=== PATIENT | female | born 1955 | race African-American/Black ===

== ENCOUNTER → 2016-12-19 | Outpatient (CLI) | payer BC ==
[2015-04-07 08:48] VITALS: BP 138/73
[~2016-12-19] MED LIST: CHOL200044 PO; LOSA100T6 PO; LOVA20TA2 PO; METO-269 PO; NAPR1TAB21 PO; OMEP40CA5 PO
--- NOTE | 2016-12-19 10:05 | RAD ---
Thyroid ultrasound, 12/19/2016: History: Thyroid nodules The right lobe of the gland measures 4.5 x 1.9 x 1.4 cm while the left lobe of the gland measures 4.4 x 1.6 x 1.3 cm. Several small nodules are seen in both lobes. There is a persistent nodule in the lower pole of the right lobe of the gland which demonstrates isoechoic and hypoechoic components as well as mildly prominent vessels along its inferior margin. It is best demonstrated on the sagittal images where it measures approximately 9 x 8 mm. It appears to be unchanged since 12/11/2015. There is a 5 x 5 x 7 mm hypoechoic nodule in the posterior aspect of the upper pole of the right lobe of the gland which also appears to be unchanged. There is a small nodule within the left side of the thyroid isthmus which measures 7-8 mm and contains isoechoic and hypoechoic components. It also appears to be unchanged since 12/11/2015. A 6 mm nodule with characteristics similar to the isthmic nodule is again noted in the posterior aspect of the lower pole of the left lobe of the gland and is also unchanged. IMPRESSION: Stable bilateral thyroid nodules.
== END | disposition home or self-care (01) ==
LOC: US 07:34
PROVIDERS: ATTEND Otolaryngology Otolaryngology/Facial Plastic Surgery
DX: E04.1 Nontoxic single thyroid nodule (principal)
CPT/HCPCS: 76536